=== PATIENT | female | born 1955 | race Caucasian/White ===

== ENCOUNTER 2017-04-21 14:34 | Emergency (ER) | payer OTHER, SELFPAY ==
[2017-04-21] MEDS ORDERED: Sodium Bicarbonate 150 MEQ in Dextrose 5% in Water 1,000 ML IV ONE ×2 (14:35)
[2017-04-21] MEDS ORDERED: Sodium Chloride 0.9% 1,000 ML IV ONE (14:35)
[2017-04-21] MEDS ORDERED: Succinylcholine 200 MG/10 ML MDV ONE (14:52)
[2017-04-21] MEDS ORDERED: Morphine 4 MG/ML Syringe ONE (14:52)
[2017-04-21] MEDS ORDERED: Ketamine 500 mg/10 ML MDV ONE (14:52)
[2017-04-21] MEDS ORDERED: Morphine 2 MG/ML Syringe ONE (14:52)
[2017-04-21] MEDS ORDERED: Amiodarone 150 MG/3 ML SDV ONE (14:52)
[2017-04-21] MEDS ORDERED: Amiodarone/Dextrose,Iso-Osmotic 150 MG/100 ML Premix Bag IV ONE (15:03)
[2017-04-21] MEDS ORDERED: Propofol 200 MG/20 ML SDV ONE (15:21)
--- NOTE | 2017-04-21 15:22 | EDM.PDOC ---
ED HPI GENERAL MEDICAL PROBLEM - General Chief Complaint: General Stated Complaint: [facility] Time Seen by Provider: 04/21/17 15:15 - History of Present Illness INITIAL COMMENTS - FREE TEXT/NARRATIVE: 61-year-old female [facility] by [facility] [place]. The patient became unresponsive pulseless and had CPR started immediately. The patient was visiting was drinking a Coke became unresponsive and went to the floor. Bystander CPR was started EMS was activated. Upon arrival EMS started epi and obtained a rhythm that looked like pulseless V. tach she was shocked 2-3 times and developed a sinus tachycardia rate in the 120s to 130s she was hypotensive and she was transported they did have kidney area and at some point but this was removed she vomited several times in transport. Upon arrival here the patient was very difficult to assess because she was combative she did have some vocalization not meaningful she was moving all 4 extremities with good strength. Family states the patient is not been feeling well the last couple days has had it moist productive cough and URI symptoms. They state the patient is a long- term smoker smoking at least one pack a day and she drinks several beers daily other than that no ongoing medical problems. ED ROS GENERAL - Review of Systems Review Of Systems: Unable To Obtain ED EXAM, CPR - Physical Exam Exam: See Below Limited By: Uncooperative General Appearance: Other (Very anxious and restless) Nose: Normal Inspection Throat/Mouth: Normal Inspection, Normal Oropharynx, Other (Missing teeth otherwise normal oral structures) Head: Atraumatic, Normocephalic Neck: No: Carotid Bruit, Lymphadenopathy (R), Lymphadenopathy (L) Respiratory Chest: Other (Upon arrival here the patient is breathing on her own she's on supplemental oxygen maintaining reasonable O2 saturation she has diminished breath sounds on the left no crackles or rhonchi or wheezes appreciated. Examination chest wall reveals a IO into the sternum she has evidence of a Baltazar device. Had been used this looks a little inferiorly placed. ) Cardiovascular: Regular Rate, Rhythm, No Edema, Tachycardia (Rate 120s) GI/Abdominal Exam: Soft, Other (Hypoactive bowel sounds but bowel sounds present ) (Female) Exam: Other (Marcus placed) Neurological: Other (Penny Coma Score of 11 clearly she had no meaningful movement but was using all 4 extremities she withdrew from pain she opened her eyes on her own she would say a few words) EKG INTERPRETATION EKG Date: 04/21/17 Rhythm: NSR [place]: Normal P-Wave: Present QRS: Other ST-T: Other (Nonspecific nondiagnostic changes) QT: Normal Comparison: NA - No Prior EKG Course - Orders/Labs/Meds Orders: Active Orders 24 hr Category Date Time Status Chest 1V Frontal [CR] Routine Exams 04/21/17 15:00 Taken Chest 1V Frontal [CR] Routine Exams 04/21/17 15:25 Taken INR,PT,PROTHROMBIN TIME [COAG] Routine Lab 04/21/17 14:48 Received PTT,PARTIAL THROMBOPLSTIN TIME [COAG] Routine Lab 04/21/17 14:48 Received Labs: Laboratory Tests 04/21/17 04/21/17 04/21/17 Range/Units 14:48 14:48 15:30 WBC 15.76 H (3.98-10.04) K/mm3 RBC 3.70 L (3.98-5.22) M/mm3 Hgb 12.7 (11.2-15.7) gm/L Hct 36.8 (34.1-44.9) % MCV 99.5 H (79.4-94.8) fl MCH 34.3 H (25.6-32.2) pg MCHC 34.5 (32.2-35.5) g/dl RDW Std Deviation 47.0 H (36.4-46.3) fL Plt Count 256 (182-369) K/mm3 MPV 9.6 (9.4-12.3) fl Neutrophils % (Manual) 81 H (40-60) % Band Neutrophils % 0 (0-10) % Lymphocytes % (Manual) 15 L (20-40) % Atypical Lymphs % 0 % Monocytes % (Manual) 2 (2-10) % Eosinophils % (Manual) 2 (0.7-5.8) % Basophils % (Manual) 0 L (0.1-1.2) Platelet Estimate Adequate Plt Morphology Comment Normal RBC Morph Comment Normal Sodium 137 (136-145) mEq/L Potassium 4.0 (3.5-5.1) mEq/L Chloride 102 (98-107) mEq/L Carbon Dioxide 18 L (21-32) mEq/L Anion Gap 21.0 H (5-15) BUN 12 (7-18) mg/dL Creatinine 1.6 H (0.55-1.02) mg/dL Est Cr Clr Drug Dosing TNP Estimated GFR (MDRD) 33 (>60) mL/min BUN/Creatinine Ratio 7.5 L (14-18) Glucose 254 H (74-106) mg/dL Lactic Acid 7.7 H (0.4-2.0) mmol/L Calcium 8.1 L (8.5-10.1) mg/dL Magnesium 2.4 (1.8-2.4) mg/dl Total Bilirubin 0.5 (0.2-1.0) mg/dL AST 531 H (15-37) U/L ALT 253 H (14-59) U/L Alkaline Phosphatase 130 H (46-116) U/L Troponin I 0.254 H* (0.00-0.056) ng/mL Total Protein 6.2 L (6.4-8.2) g/dl Albumin 3.2 L (3.4-5.0) g/dl Globulin 3.0 gm/dL Albumin/Globulin Ratio 1.1 (1-2) Meds: Medications Discontinued Medications Generic Name Dose Route Start Last Admin Trade Name Freq PRN Reason Stop Dose Admin Amiodarone HCl/Dextrose Confirm 04/21/17 15:11 Nexterone In Dextrose 360 Mg/200 Ml Administered 04/21/17 15:12 Dose 360 mg in 200 mls @ as directed .ROUTE .STK-MED ONE Propofol Confirm 04/21/17 15:35 Diprivan 100 Ml Administered 04/21/17 15:36 Dose 100 mls @ as directed .ROUTE .STK-MED ONE Propofol Confirm 04/21/17 15:21 Diprivan 20 Ml Administered 04/21/17 15:22 Dose 200 mg .ROUTE .STK-MED ONE - Re-Assessments/Exams Free Text/Narrative Re-Assessment/Exam: 04/21/17 16:16 Patient was brought in by 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 tach she received 2-3 Shocks resulting in a sinus tachycardia rate in the 120s with a pulse the patient became a little more arousable had some emesis episodes in route. Apparently they had a Augie airway in for a short period of time as was removed. IV access was obtained by peripheral site and a sternal IO. Upon arrival here she was difficult to assess because of moving all 4 extremities she would say some words but she was difficult to calm and evaluate we went ahead and intubated her using a glide scope she was pretreated with ketamine followed with succinylcholine. First attempt intubation was obtained using a glide scope #3, 7.0 ET tube was secured 20 cm at the lip. We had color change and good bilateral breath sounds OG tube was placed. X-ray examination postintubation shows OG tube in place and successful ET tube placement 3 cm above the maycol. Labs did come in her troponin slightly elevated at the subtle bump at 0.25 upper and and normal is 0.056. She has some transaminase elevation white count of 15,000 no bandemia ABG showed a acidosis with pH is 7.13 PCO2 of 50.7 bicarbonate of 12.3, carboxyhemoglobin 3.3% early on the patient's course the patient situation was discussed with Dr. De La O cognos consultant at [facility]. With his labs came back the situation was again discussed with him. Situation also discussed with Dr. Reis ER physician the patient will be transferred via [facility] to [facility]. Departure - Departure Time of Disposition: 16:29 Disposition: DC/Tfer to Acute Hospital 02 Condition: Critical Clinical Impression: Cardiopulmonary arrest with successful resuscitation, Ventricular tachycardia - Discharge Information Forms: ED Department Discharge - My Orders Last 24 Hours: My Active Orders 04/21/17 14:48 INR,PT,PROTHROMBIN TIME [COAG] Routine PTT,PARTIAL THROMBOPLSTIN TIME [COAG] Routine 04/21/17 15:00 Chest 1V Frontal [CR] Routine 04/21/17 15:25 Chest 1V Frontal [CR] Routine - Assessment/Plan Last 24 Hours: My Active Orders 04/21/17 14:48 INR,PT,PROTHROMBIN TIME [COAG] Routine PTT,PARTIAL THROMBOPLSTIN TIME [COAG] Routine 04/21/17 15:00 Chest 1V Frontal [CR] Routine 04/21/17 15:25 Chest 1V Frontal [CR] Routine
--- NOTE | 2017-04-21 15:56 | PCM.SN ---
- Free Text/Narrative Note: Start: 151 Stop:[id number] Anesthesia called in for a post Code Blue resuscitation. Upon arrival, patient in a sinus rhythm with a pulse, and unresponsive after the administration of etomidate and succinylcholine. ER physician Dr. To present and intubating with glidescope, with anesthesia present for assistance. Size 7 ETT placed and secured at 20cm at the lip. (+ETCO2 noted along with bilateral breath sounds.) 18 luxembourger oral gastric tube placed with 50ml's of emesis suctioned out and then placed to LIS. Portable CXR taken. HR= 80's/82 BP= 110's/60's/135/88 RR= with 100% FIO2 via ambu bag rate == 12 breaths/min/18 SPO2=92%/ 94% Propofol drip started at 50mcg/kg/min. Vecuronium 10mg given IV. Normal saline infusing 125ml's/hr Amiodorone drip infusing as well. Transport team arriving for transport. Thank you! Sha WEEMS
[2017-04-21] MEDS ORDERED: Sodium Bicarbonate 150 MEQ in Dextrose 5% in Water 1,000 ML IV SCH ×4 (16:15)
[2017-04-21] MEDS ORDERED: Propofol 1,000 MG/100 ML SDV ONE (16:38)
--- NOTE | 2017-04-22 07:14 | CR ---
Chest: Frontal view of the chest was obtained. Comparison: Previous chest x-ray performed earlier on same day (2:55 PM). Haziness within the left chest is again seen which is felt compatible with pleural effusion. Right lung is clear. Tip of endotracheal tube lies at the level the clavicles. Nasogastric tube courses off inferior to the film into the stomach. Impression: 1. Continuing haziness throughout the left chest felt compatible with pleural effusion layering posteriorly. 2. Satisfactory position of endotracheal tube and nasogastric tube. Diagnostic code #3
--- NOTE | 2017-04-22 07:14 | CR ---
Chest: Frontal view of the chest was obtained. Comparison: Previous chest x-ray is not available. Haziness throughout the left chest is seen may represent layering pleural effusion posteriorly. Right lung is clear. Heart size and mediastinum are normal. Bony structures are grossly intact. Impression: 1. Haziness in the left chest possibly due to layering pleural effusion posteriorly. No additional abnormality is seen on this study. Diagnostic code #3
== END 2017-04-21 16:38 ==
LOC: EDBD 14:34 → JD.ED 14:34
DX: I46.9 Cardiac arrest, cause unspecified (principal); I47.2 Ventricular tachycardia
CPT/HCPCS: 31500; 36415; 36600; 51702; 71010; 80053; 82803; 83605; 83735; 84484; 85025; 85610; 85730; 92950; 93005; 96365; 96367; 96374; 96375; 99291; 99292; J0282; J0330; J2270; J7040; J7060; 99285-25; J2704; J3490